=== PATIENT | female | born 1970 | race Two or more races ===

== ENCOUNTER 2025-01-20 09:12 | Outpatient (CLI) | payer OTHER | END 2025-01-20 09:18 | disposition home or self-care (01) | LOC: MRI 09:12 | PROVIDERS: ATTEND Physical Medicine & Rehabilitation Hospice and Palliative Medicine | DX: M54.2 Cervicalgia (principal); M47.812 Spondylosis without myelopathy or radiculopathy, cervical region; M50.90 Cervical disc disorder, unspecified, unspecified cervical region | CPT/HCPCS: 72141 ==